=== PATIENT | male | born 1970 | race Caucasian/White ===

== ENCOUNTER 2025-01-14 22:58 | Observation (INO) | payer OTHER, SELFPAY ==
[2025-01-14 23:02] VITALS: BP 166/93; PULSE 72; RESP 22; TEMP 36.7; O2SAT 100; BMI 23.6
--- NOTE | 2025-01-14 23:15 | CTR_ITS ---
PROCEDURE INFORMATION: Exam: CTA Chest Without And With Contrast CTA Abdomen and Pelvis With Contrast Exam date and time: 01/14/2025 11:28 PM Age: 54 years old Clinical indication: Other: N/a; Abdominal pain; C/O intractable chest and epigastric pain radiating into back with n/v. ; Additional info: Aaa TECHNIQUE: Imaging protocol: Computed tomographic angiography of the chest without and with contrast. Exam focused on the arteries. Computed tomographic angiography of the abdomen and pelvis with contrast. Exam focused on the arteries. 3D rendering (Not supervised by radiologist): MIP and/or 3D reconstructed images were created by the technologist. Radiation optimization: All CT scans at this facility use at least one of these dose optimization techniques: automated exposure control; mA and/or kV adjustment per patient size (includes targeted exams where dose is matched to clinical indication); or iterative reconstruction. Contrast material: OMNI 350; Contrast volume: 100 ml; Contrast route: INTRAVENOUS (IV); COMPARISON: No relevant prior studies available. RADIATION DOSE METRICS: Total DLP (mGy-cm): 1767.88 FINDINGS: VASCULATURE: Pulmonary arteries: No evidence of pulmonary embolism. Aorta: No evidence of intramural hematoma on precontrast images. No evidence of aortic dissection. The aorta demonstrates mild atherosclerotic calcification. The aorta is normal in caliber. No aneurysm. Celiac trunk and mesenteric arteries: No occlusion or significant stenosis. Renal arteries: No occlusion or significant stenosis. Right iliac arteries: No occlusion or significant stenosis. Left iliac arteries: No occlusion or significant stenosis. Thyroid: The visualized thyroid gland is unremarkable. CHEST: Trachea: The central airways are patent. Lungs: Moderate emphysema with areas of confluence in the upper lobes. No focal consolidation. Pleural spaces: No significant pleural effusion. No pneumothorax. Heart: Mild aortic valvular calcifications. The heart is normal in size. No pericardial effusion. Coronary arteries: There are scattered mild coronary artery calcifications. ABDOMEN AND PELVIS: Liver: Hepatic hyperemia along the gallbladder fossa. Gallbladder and biliary ducts: 2.5 cm stone within the gallbladder neck. Associated gallbladder wall edema, thickening, pericholecystic stranding and inflammatory changes, as well as mild hepatic hyperemia along the gallbladder fossa. There is no intra or extrahepatic biliary ductal dilatation. Pancreas: The pancreas is unremarkable. Spleen: The spleen is unremarkable. The spleen demonstrates punctate calcifications, consistent with remote granulomatous organism exposure. Adrenal glands: The adrenal glands are unremarkable. Kidneys and ureters: Bilateral nonobstructive renal stones versus early contrast excretion. Simple 2.7 cm cyst within the left kidney. Stomach and bowel: Mild periduodenal fat stranding and mild wall thickening. Colonic diverticulosis without evidence of diverticulitis. Appendix: A normal appendix is identified. Intraperitoneal space: No significant peritoneal free fluid. No free peritoneal air. Urinary bladder: The bladder is unremarkable. Reproductive: The prostate demonstrates nonspecific parenchymal calcifications. Lymph nodes: Calcified hilar lymph nodes, suggestive of prior granulomatous organism exposure. No enlarged lymph nodes by size criteria. Bones/joints: There are right-sided acromioclavicular and glenohumeral joint degenerative changes. The spine demonstrates mild degenerative changes at multiple levels. The spine demonstrates mild degenerative changes at multiple levels. Soft tissues: Unremarkable. Other findings: Scattered calcified granulomas. CT/CT bong gunderson [facility] [id number] IMPRESSION: 1. Cholelithiasis, gallbladder wall edema, thickening, pericholecystic stranding and inflammatory changes, as well as mild hepatic hyperemia along the gallbladder fossa. Findings are consistent with acute cholecystitis. 2. Mild periduodenal fat stranding and mild wall thickening, likely reactive due to adjacent gallbladder inflammation. 3. No evidence of pulmonary embolism. No aortic dissection or aneurysm. 4. Moderate emphysema. COMMENTS: 1. Consistent with the [employer]'s Incidental Findings Committee white paper (J Am Nayla Radiol 2018): Any incidental renal lesion less than 1 cm or classified as too small to characterize, or any incidental cystic renal lesion characterized as simple-appearing, is likely benign. No follow-up imaging is recommended for these lesions per consensus recommendations based on imaging criteria. 2. The presence of pulmonary emphysema on CT is an independent risk factor for lung cancer. In the absence of a history or active diagnosis of lung cancer, it is recommended that this patient with emphysema be evaluated for enrollment in a low dose CT lung cancer screening program.
--- NOTE | 2025-01-14 23:16 | ECG_ITS ---
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 Measurements Intervals [place] Rate: 72 P: 0 CT: 0 QRS: 34 QRSD: 93 T: 54 QT: 361 QTc: 396 Interpretive Statements ATRIAL FIBRILLATION No previous ECG available for comparison Electronically Signed On 01-17-2025 17:29:50 CDT by Chepe Garcia M.D. [id number]
[2025-01-14 23:26] LABS: Basophils # 0.1 10^3/uL (0.0-0.1); Basophils % 0.2 %; Eosinophils % 0.1 %; Hematocrit 48.5 % (37-53); Lymphocytes # 2.3 10^3/uL (0.8-4.8); Lymphocytes % 7.7 %; Mean Corpuscular HGB Conc 35.3 g/dL (30-55); Mean Corpuscular Hemoglobin 28.5 pg (27-33); Mean Platelet Volume 9.3 fL (7.4-10.4); Monocytes # 1.8 10^3/uL (0.2-0.9); Monocytes % 5.9 %; Neutrophils # 25.63 10^3/uL (1.8-7.7); Neutrophils % 85.5 %; Nucleated Red Blood Cells % 0 %; Platelet Count 424 10^3/cmm (157-399); Red Blood Count 5.99 10^6/uL (3.85-5.65); Red Cell Distribution Width 13.9 % (12.1-15.1); White Blood Count 29.95 10^3/uL (3.29-11.43)
[2025-01-14] MEDS: iohexol 350 mg/mL 500 mL Btl (per mL) IV (23:29)
--- NOTE | 2025-01-14 23:36 | W.ED.CHESTPA ---
HPI - Chest Pain General: Chief Complaint: Chest Pain Stated Complaint: CP ?SOB Time Seen by Provider: 01/14/25 23:07 History of Present Illness: Patient is a 54-year-old gentleman, smoker, hypertensive patient compliant to lisinopril, amlodipine, that presented to ED due to severe chest/epigastric pain. This is sharp and stabbing in nature and penetrating to to his back. He does not have history of aortic aneurysm that he is aware of. He does have association of severe increasing shortness of breath, nausea, vomiting, diaphoresis. Denies previous cardiac history. Initial EKG does not show any ST segment elevation. Blood pressure initially was quite elevated. Associated symptoms: Reports abdominal pain, dyspnea, nausea and vomiting; Deny fever(s) or palpitations Related Data Allergies Allergy/AdvReac Type Severity Reaction Status Date / Time No Known Allergies Allergy Verified 01/14/25 23:05 Review of Systems General: Reports: 10 or more systems reviewed and unremarkable except in HPI and below Const: Denies: fever(s) or chills Eyes: Denies: change in vision or blurry vision ENMT: Denies: throat pain Card: Reports: chest pain; Denies: palpitations Resp: Reports: dyspnea; Denies: non-productive cough GI: Reports: abdominal pain, nausea and vomiting : Denies: flank pain or difficulty urinating Musc: Denies: neck pain, back pain or extremity pain Skin/Breast: Denies: rash or pruritus Neuro: Denies: headache(s) or numbness in extremities Psych: Reports: anxiety; Denies: depression Physical Exam Const: COMMON NORMALS: patient oriented x3 HENMT: COMMON NORMALS: normocephalic and atraumatic HEAD & SCALP: normocephalic and atraumatic Chest: COMMONS NORMALS: normal inspection of the chest and normal palpation of entire chest wall Resp: COMMON NORMALS: normal respiratory effort, No retractions and clear to auscultation bilaterally EFFORT & INSPECTION: Yes able to speak in complete sentences AUSCULTATION: clear to auscultation bilaterally Cardio: COMMON NORMALS: regular rate and regular rhythm RATE: regular rate RHYTHM: regular rhythm GI: COMMON NORMALS: Normal to inspection, nondistended, normoactive bowel sounds present, Soft to palpation and non-tender AUSCULTATION: Yes normoactive bowel sounds and Yes Abdominal bruit (epigastrum) PALPATION: Yes Soft to palpation : COMMON NORMALS: Yes no CVA tenderness BLADDER/KIDNEY EXAM: Yes no CVA tenderness Back/Pelvis: COMMON NORMALS: no CVA tenderness Extremity: COMMON NORMALS: normal to inspection, full ROM and capillary refill normal Neuro: COMMON NORMALS: patient oriented x3 and CN's II-XII intact bilaterally Psych: COMMON NORMALS: mental status grossly normal and Normal thought process present THOUGHT PROCESS: Normal thought process present Skin: COMMON NORMALS: no wounds Course Consultations: Consultation #1: D/w Dr. Doshi: He has asked for radio disc jockey to be called in to ensure there is no stones. Patient can have Toradol for pain. N.p.o. for now. Vital Signs: Vital signs: Vital Signs Temperature 98.1 F 01/14/25 23:02 Pulse Rate 72 01/15/25 00:30 Respiratory Rate 22 H 01/15/25 00:30 Blood Pressure 155/88 01/15/25 00:30 Pulse Oximetry 99 01/15/25 00:30 Oxygen Delivery Me thod Room Air 01/14/25 23:02 MDM - Chest Pain Medical Decision Making Patient is a 54-year-old gentleman with excruciating epigastric and chest pain associated with shortness of breath, and nausea, vomiting. This started yesterday a.m. It is worse with food intake after patient was able to have pain control. Initial likely, abdominal bruit was noted in high epigastrium, and therefore stat CT of the abdomen pelvis took place. Cholelithiasis with gallbladder wall edema, thickening, pericholecystic stranding, and a WBC of 29,000 prompted a call to the on-call surgeon Dr. Doshi, who recommends ultrasound to rule out stones prior to full admission. He also recommended Zosyn, however given his creatinine 1.3, with association of hemoglobin is 17, he is okay with Rocephin, and Flagyl until this improves. Primary surgeon also recommended Toradol dose x 1. Discussed with primary surgeon if he would like a call back, and he would. I signed the case out to Dr. Aldridge who will coordinate with the primary surgeon. All of the patient's questions were answered to his satisfaction. Primary surgeon called back and reviewed the CT himself. He does not need an ultrasound at this time called in. He will order that at later juncture. Lab Data 01/14/25 23:10 01/14/25 23:10 Radiology Impressions Chest/Abdomen/Pelvis CTA 01/14/25 23:15 IMPRESSION: 1. Cholelithiasis, gallbladder wall edema, thickening, pericholecystic stranding and inflammatory changes, as well as mild hepatic hyperemia along the gallbladder fossa. Findings are consistent with acute cholecystitis. 2. Mild periduodenal fat stranding and mild wall thickening, likely reactive due to adjacent gallbladder inflammation. 3. No evidence of pulmonary embolism. No aortic dissection or aneurysm. 4. Moderate emphysema. COMMENTS: 1. Consistent with the [employer]'s Incidental Findings Committee white paper (J Am Nayla Radiol 2018): Any incidental renal lesion less than 1 cm or classified as too small to characterize, or any incidental cystic renal lesion characterized as simple-appearing, is likely benign. No follow-up imaging is recommended for these lesions per consensus recommendations based on imaging criteria. 2. The presence of pulmonary emphysema on CT is an independent risk factor for lung cancer. In the absence of a history or active diagnosis of lung cancer, it is recommended that this patient with emphysema be evaluated for enrollment in a low dose CT lung cancer screening program. Chest X-Ray 01/14/25 23:40 IMPRESSION: No acute findings. Laboratory Results WBC 29.95 10^3/uL (3.29-11.43) H 01/14/25 23:10 RBC 5.99 10^6/uL (3.85-5.65) H 01/14/25 23:10 Hgb 17.10 g/dL (11.27-16.99) H 01/14/25 23:10 Hct 48.5 % (37-53) 01/14/25 23:10 MCV 81.0 fl (82-101) L 01/14/25 23:10 MCH 28.5 pg (27-33) 01/14/25 23:10 MCHC 35.3 g/dL (30-55) 01/14/25 23:10 RDW 13.9 % (12.1-15.1) 01/14/25 23:10 Plt Count 424 10^3/cmm (157-399) H 01/14/25 23:10 MPV 9.3 fL (7.4-10.4) 01/14/25 23:10 Neut % (Auto) 85.5 % 01/14/25 23:10 Lymph % (Auto) 7.7 % 01/14/25 23:10 [place] % (Auto) 5.9 % 01/14/25 23:10 Eos % (Auto) 0.1 % 01/14/25 23:10 Baso % (Auto) 0.2 % 01/14/25 23:10 Neut # (Auto) 25.63 10^3/uL (1.8-7.7) H 01/14/25 23:10 Lymph # (Auto) 2.3 10^3/uL (0.8-4.8) 01/14/25 23:10 [place] # (Auto) 1.8 10^3/uL (0.2-0.9) H 01/14/25 23:10 Eos # (Auto) 0.0 10^3/uL (0.0-0.8) 01/14/25 23:10 Baso # (Auto) 0.1 10^3/uL (0.0-0.1) 01/14/25 23:10 Nucleated RBC % (auto) 0 % 01/14/25 23:10 Nucleated RBCs # 0.0 /100WBC 01/14/25 23:10 Sodium 141 mmol/L (136-145) 01/14/25 23:10 Potassium 3.9 mmol/L (3.5-5.1) 01/14/25 23:10 Chloride 102 mmol/L (98-107) 01/14/25 23:10 Carbon Dioxide 18 mmol/L (22-29) L 01/14/25 23:10 Anion Gap 24.9 (5-19) H 01/14/25 23:10 BUN 20 mg/dL (6-20) 01/14/25 23:10 Creatinine 1.3 mg/dL (0.7-1.2) H 01/14/25 23:10 GFR Calculation 57.1 mL/min (90-130) L 01/14/25 23:10 Glucose 153 mg/dL (65-115) H 01/14/25 23:10 Calculated Osmolality 298 mOsm/kg (285-295) H 01/14/25 23:10 Calcium 11.2 mg/dL (8.5-10.5) H 01/14/25 23:10 Total Bilirubin 1.2 mg/dL (0.15-1.2) 01/14/25 23:10 AST 20 U/L (0-40) 01/14/25 23:10 ALT 19 U/L (0-41) 01/14/25 23:10 Alkaline Phosphatase 123 U/L (40-130) 01/14/25 23:10 Troponin T Baseline 12 ng/L (0-15) 01/14/25 23:10 Troponin T 120 Minute 13.96 ng/L (0-15) 01/15/25 00:23 Delta Troponin T 1.96 ABS# (0-10) 01/15/25 00:23 Total Protein 8.0 g/dL (6.6-8.7) 01/14/25 23:10 Albumin 5.1 g/dL (3.5-5.2) 01/14/25 23:10 Globulin 2.9 g/dL (1.3-4.6) 01/14/25 23:10 Lipase 51 U/L (13-60) 01/14/25 23:10 All radiology interpretation(s) finalized by discharge EKG Data EKG 1: Interpretation: Normal axis, sinus rhythm, LVH, left atrial enlargement Discharge Plan Discharge Patient Disposition: Admitted As Inpatient Clinical Impression: Cholecystitis, JUANCARLOS (acute kidney injury), Polycythemia, secondary, Leukocytosis Condition: Stable Discharge Diet: Clear Liquid Coding Level of Care Code ED Gummed Tape Press Operator for Chg Rex
--- NOTE | 2025-01-14 23:40 | XRR_ITS ---
PROCEDURE INFORMATION: Exam: XR Chest Exam date and time: 01/14/2025 11:57 PM Age: 54 years old Clinical indication: Chest pressure; C/O chest pain TECHNIQUE: Imaging protocol: Radiologic exam of the chest. Views: 1 view. COMPARISON: CT ang jalyn edwardo [id number] 01/14/2025 11:28 PM FINDINGS: Lungs: Unremarkable. No consolidation. Pleural spaces: Unremarkable. No pleural effusion. No pneumothorax. Heart/Mediastinum: Unremarkable. No cardiomegaly. Bones/joints: There are right-sided acromioclavicular and glenohumeral joint degenerative changes. The spine demonstrates mild degenerative changes at multiple levels. XR/XR chest 1V portable [id number] IMPRESSION: No acute findings.
[2025-01-14] MEDS: morphine 4 mg/mL SDV 1 mL IVP (23:43)
[2025-01-14] MEDS: nitroglycerin 1 gm/inch oint Pkt 0.5 INCH TOPICAL (23:43)
[2025-01-14 23:44] LABS: Troponin(5th) Baseline 12 ng/L (0-15)
[2025-01-14 23:46] LABS: Alanine Aminotransferase 19 U/L (0-41); Albumin Level 5.1 g/dL (3.5-5.2); Alkaline Phosphatase 123 U/L (40-130); Anion Gap 24.9 (5-19); Aspartate Amino Transferase 20 U/L (0-40); Blood Urea Nitrogen 20 mg/dL (6-20); Calcium 11.2 mg/dL (8.5-10.5); Carbon Dioxide 18 mmol/L (22-29); Chloride 102 mmol/L (98-107); Creatinine Clr Calc Pharmacy 64.1218; Globulin 2.9 g/dL (1.3-4.6); Glomerular Filtration Rate 57.1 mL/min (90-130); Glucose 153 mg/dL (65-115); Lipase 51 U/L (13-60); Osmolality Calculated 298 mOsm/kg (285-295); Potassium 3.9 mmol/L (3.5-5.1); Sodium 141 mmol/L (136-145); Total Bilirubin 1.2 mg/dL (0.15-1.2)
[2025-01-15] VITALS (28 sets, daily range): BP systolic 87–185; BP diastolic 55–96; PULSE 58–99; RESP 11–27; TEMP 36.5–37.8; O2SAT 90–100; BMI 23.6
[2025-01-15] MEDS: ketorolac 30 mg/mL INJ IVP (00:49)
[2025-01-15] MEDS: HYDROmorphone 0.5 MG/0.5 ML INJ 1 MG IVP (00:50)
[2025-01-15 00:52] LABS: Troponin 5 2HR 13.96 ng/L (0-15); Troponin 5 2HR Delta 1.96 ABS# (0-10)
[2025-01-15] MEDS: cefTRIAXone 1,000 mg SDV 1000 MG IVP (01:07)
[2025-01-15] MEDS: ondansetron 2 mg/ML SDV 2 mL 4 MG IVP (01:07)
[2025-01-15] MEDS: sodium chloride 0.9% 1,000 ML 999 ML IV (01:08)
[2025-01-15] MEDS: metroNIDAZOLE IV 500 MG/100 ML PREMIX 100 MG IV (01:15)
--- NOTE | 2025-01-15 01:15 | USR_ITS ---
PROCEDURE INFORMATION: Exam: US Abdomen, Limited; Right Upper Quadrant Exam date and time: 01/15/2025 5:56 AM Age: 54 years old Clinical indication: Abdominal pain; Additional info: Dr. Naresh Cesar wants US called in TECHNIQUE: Imaging protocol: Real time ultrasound of the abdomen with image documentation. Limited exam focused on the right upper quadrant. COMPARISON: CT ang [facility] abdpel [id number] 01/14/2025 11:28 PM FINDINGS: Liver: Normal. No masses. Gallbladder: Cholelithiasis including stones in the neck of the gallbladder. The gallbladder wall is thickened and edematous at 6 mm. Sludge is also present within the gallbladder. Biliary ducts: The common duct is borderline at 7 mm. Pancreas: Visualized pancreas is unremarkable. Right kidney: Normal. No mass. No hydronephrosis. US/US abdomen limited [id number] IMPRESSION: Cholelithiasis with a thickened and probably edematous gallbladder wall. Acute cholecystitis is likely.
--- NOTE | 2025-01-15 02:40 | ECG_ITS ---
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 Measurements Intervals [place] Rate: 69 P: 51 SD: 150 QRS: 8 QRSD: 101 T: 19 QT: 391 QTc: 419 Interpretive Statements SINUS RHYTHM Compared to ECG 01/14/2025 23:00:59 Atrial fibrillation no longer present Electronically Signed On 01-15-2025 19:33:22 CDT by Tigist Su M.D. [email or web address] [id number]
[2025-01-15] MEDS: lactated ringers 1,000 ML 125 ML IV ×3 (02:55→22:28)
[2025-01-15] MEDS: piperacillin-tazobactam 3.375 GM in sodium chloride 0.9% (plus) 50 ML IV ×2 (03:16→09:13)
--- NOTE | 2025-01-15 05:16 | ECG_ITS ---
[employer] 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 Measurements Intervals [place] Rate: 75 P: 57 GA: 162 QRS: 15 QRSD: 87 T: 35 QT: 351 QTc: 392 Interpretive Statements SINUS RHYTHM SEPTAL MYOCARDIAL INFARCTION , PROBABLY OLD [40+ ms Q WAVE IN V1/V2] Compared to ECG 01/15/2025 02:40:49 Myocardial infarct finding now present Electronically Signed On 01-15-2025 19:33:10 CDT by Tigist Su M.D. [email or web address] [id number]
[2025-01-15 05:54] LABS: Troponin 5 6HR 12.79 ng/L (0-15); Troponin 5 6HR Delta 0.79 ng/L (0-12)
[2025-01-15] MEDS: HYDROmorphone 0.5 MG/0.5 ML INJ IVP ×3 (06:21→22:29)
--- NOTE | 2025-01-15 07:24 | PC.PHAR ---
Pts' primary pharmac is [facility] in [place] but, for today, wants to use [facility] [place]. Changed current pharmacy to [facility].
--- NOTE | 2025-01-15 09:08 | P.HP_ITS ---
Providers/Chief Complaint 2 Admitting Physician: Arden Carroll MD Primary Care Provider: Cory Robin MD Chief Complaint: CP SOB History of Present Illness Jose Manuel Leblanc is a 54 year old male who presents to the hospital with severe chest and epigastric abdominal pain. Workup was consistent with acute cholecystitis. According to the patient he had a similar pain about a month ago but he stayed home and it subsided without treatment. About 48 hours ago he started to have severe abdominal pain that worsened after eating and therefore he decided to present overnight. Weikel in the ER is 29,000 CT scan and ultrasound are consistent with acute cholecystitis with a 2.5 cm stone in the neck of the gallbladder. Review of Systems 2 General: Reports: 10 or more systems reviewed and unremarkable except in HPI and below Medications/Allergies Home Medications ?Medication ?Instructions ?Recorded ?Confirmed ?Last Taken ?Type amlodipine 10 mg tablet 10 mg PO DAILY 01/15/2512/2601/14/25 History lisinopril 20 mg tablet 20 mg PO DAILY 01/15/2512/2601/14/25 History Allergies Allergy/AdvReac Type Severity Reaction Status Date / Time No Known Allergies Allergy Verified 01/14/25 23:05 Vitals/I&O/Wt Last Vital Signs Temp 98.1 F 01/14/25 23:02 Pulse 79 01/15/25 08:55 Resp 27 H 01/15/25 07:00 BP 134/87 01/15/25 08:55 Pulse Ox 92 01/15/25 08:55 O2 Del Method Room Air 01/15/25 03:00 01/14/25 01/15/25 01/15/25 22:59 06:59 14:59 Intake Total 100 / 100 Balance 100 / 100 Weight last 48 hrs Weight 160 lb Physical Exam 2 GI: OTHER: Abdominal exam is benign abdomen soft there is only mild tenderness in right upper quadrant nondistended Data 01/14/25 23:10 01/14/25 23:10 A&P Assessment and plan (1) Cholecystitis: (2) JUANCARLOS (acute kidney injury): Plan After a complete history, physical examination and review of all available clinical data I have offered the patient laparoscopic possible open cholecystectomy for acute cholecystitis. All the risk and benefits of the procedure were discussed with the patient including the risks of bleeding, infection, damage to surrounding structures including liver, duodenum, colon, risk of injuring bile ducts requiring extensive surgery at higher level of care facility, risk of retained stones, bile leak, bilioma, need for subtotal cholecystectomy (that may lead to leak and need for additional surgery), hernia and wound related complications, need to conversion to open procedure. Patient shows understanding and would like to proceed. Patient is being kept n.p.o. and will proceed with surgery as soon as the OR is available PDMP PDMP Reviewed: Not Reviewed Attestations 2 Medical Necessity Statement*: Patient will require 24 to 48 hours of hospital stay for acute cholecystitis Coding Level of Care Code Acute Code for [facility] Fwd Diagnoses Cholecystitis K81.9 JUANCARLOS (acute kidney injury) N17.9
--- NOTE | 2025-01-15 09:12 | ANES.PREANE2 ---
Pre-Anesthetic Assessment Height/Weight: Height 1.75 m Weight 72.575 kg Temp Pulse Resp BP Pulse Ox O2 Del Method 99.0 F 87 20 H 169/96 96 Room Air 01/15/25 09:00 01/15/25 09:00 01/15/25 09:00 01/15/25 09:00 01/15/25 09:00 01/15/25 09:00 Operation Date: 01/15/25 10:20 Proposed Procedures p Laparoscopic Possible Open Cholecystectomy(Not Applicable) - Arden Carroll MD Familial anesthetic complications: None Was Beta Jose taken within 24 hours: N/A Was Clonidine taken within 24 hours: N/A Last intake: > 8hrs Social No alcohol and No tobacco Exam alert, oriented x 3, clear to auscultation bilaterally and regular rate & rhythm Airway Mallampati: Class II Dentition: loose (1 loose) and other (multiple missing) Comments: Comments: Full herman CV/HEM Hypertension Anesthetic Plan ASA status: 2 Anesthesia: General Risk of > 500 ml blood loss (7ml/kg in children): No Medications/Allergies Home Medications ?Medication ?Instructions ?Recorded ?Confirmed ?Last Taken ?Type amlodipine 10 mg tablet 10 mg PO DAILY 01/15/25 01/15/25 01/14/25 History lisinopril 20 mg tablet 20 mg PO DAILY 01/15/25 01/15/25 01/14/25 History Allergies Allergy/AdvReac Type Severity Reaction Status Date / Time No Known Allergies Allergy Verified 01/14/25 23:05 Current Medications Generic Name Dose Route Start Last Admin Trade Name Freq PRN Reason Stop Dose Admin Hydromorphone HCl 0.5 mg 01/15/25 01:36 01/15/25 06:21 Hydromorphone 0.5 Mg/0.5 Ml Inj IVP 0.5 mg Q4H PRN Administration SEVERE PAIN Lactated Ringer's 1,000 mls @ 125 mls/hr 01/15/25 02:00 01/15/25 02:55 Lactated Ringers IV 125 mls/hr .Q8H PEDRITO Administration Data Anesthesia 01/14/25 23:10 01/14/25 23:10 Short CBC 01/14/25 Range/Units 23:10 WBC 29.95 H (3.29-11.43) 10^3/uL Hgb 17.10 H (11.27-16.99) g/dL Hct 48.5 (37-53) % MCV 81.0 L (82-101) fl Plt Count 424 H (157-399) 10^3/cmm Neut % (Auto) 85.5 % Neut # (Auto) 25.63 H (1.8-7.7) 10^3/uL BMP 01/14/25 23:10 Sodium 141 Potassium 3.9 Chloride 102 Carbon Dioxide 18 L BUN 20 Creatinine 1.3 H Glucose 153 H Calcium 11.2 H Cardiac Enzymes 01/14/25 01/15/25 01/15/25 Range/Units 23:10 00:23 05:15 Troponin T Baseline 12 (0-15) ng/L Troponin T 120 Minute 13.96 (0-15) ng/L Delta Troponin T 1.96 (0-10) ABS# Troponin T Hi Sens 6Hr 12.79 (0-15) ng/L Troponin T Hi Sens 6Hr Delta 0.79 (0-12) ng/L Liver Function 01/14/25 Range/Units 23:10 Total Bilirubin 1.2 (0.15-1.2) mg/dL AST 20 (0-40) U/L ALT 19 (0-41) U/L Alkaline Phosphatase 123 (40-130) U/L Albumin 5.1 (3.5-5.2) g/dL
[2025-01-15] MEDS: BUPivacaine 0.25% INJ 30 mL INJECTION (11:01)
[2025-01-15] MEDS: lidocaine-epi 1% 20 mL INJ INJECTION (11:01)
--- NOTE | 2025-01-15 13:19 | PM.OP ---
Operative Report Date of procedure: January 15, 2025 Pre-op diagnosis: Acute cholecystitis Post-op diagnosis: Same Post-op findings: Severe acute cholecystitis, there was a 2.5 cm stone impacted in the neck of the gallbladder, the gallbladder was severely inflamed with a thickened wall, and anatomy of the hepatocystic triangle was very difficult to identify. The tissue was friable and bleeding. Procedure done: Laparoscopic cholecystectomy (add modifier 22) Specimens removed/disposition: Gallbladder Surgeon: Arden Carroll MD Master Scheduler: OLINDA OR STaff Estimated blood loss: 50 Complications: none Brief History: 54-year-old male with acute cholecystitis who presented after 2 to 3 days of abdominal pain, white count noted to be 29 imaging is consistent with acute cholecystitis. After discussion of risk benefits and submitted my preop note with side to proceed to the OR for laparoscopic cholecystectomy. Procedure: Patient was brought into the OR, he was placed in a supine position. General anesthesia was given. The abdomen was prepped and draped in usual sterile fashion. Timeout was conducted. The abdomen was accessed via a 5 mm Optiview trocar in the left upper quadrant. Additional 12 mm trocar was placed in the supraumbilical position under direct visualization. 5 mm trocars were placed in the epigastrium right upper quadrant and right flank under direct visualization. The patient was placed in a steep reverse Trendelenburg with the left side down. Adhesions from the omentum to the gallbladder were noted, these were inflammatory adhesions were taken down bluntly there was some oozing during this. The wall of the gallbladder was extremely thickened and impossible to grasp use a decompression needle and remove about 60cc of dark bile from the gallbladder before I was able to grasp it. the gallbladder was grasped in the fundus and elevated, there was significant inflammation at the level of the infundibulum and hepatocystic triangle, infundibulum was very difficult to grasp due to an impacted stone at this level. With careful dissection with a laparoscopic Kitner I was able to take down all the fatty attachments from the surrounding tissue to the infundibulum of the gallbladder and I was able to pull the duodenum down with careful blunt dissection. I then used electrocautery to open the peritoneum anterior to the cystic triangle, I carried this opening the medial and lateral dissection to the edges of the liver and then on the sides of the gallbladder to allow for better visualization. There was severe inflammation at this level the exposure of the critical structures was extremely difficult, with great difficulty and a combination of blunt dissection and electrocautery I eventually was able to encircle the cystic artery and the cystic duct and to elevate the lower third of the gallbladder from the liver I did create a critical view of safety. At this point I double clipped the cystic artery and cystic duct proximally and single clipped distally and transected. The gallbladder was then removed from the liver bed using electrocautery, the gallbladder was significantly inflamed in the midsection of the gallbladder I entered the posterior wall and decided to leave a small portion of the posterior wall as there was significant oozing from the liver. Once the gallbladder was completely removed from the liver bed I proceeded to verify hemostasis and fulgurated the mucosa of the small patch of posterior wall that was left with the patient in the liver bed. Hemostasis was verified the clips appeared to be in good position there was no bile leak. The gallbladder was placed in an Endo Catch bag and retrieved via the umbilical trocar site, due to the size of the stone in the gallbladder I had to significantly dilate the fascia and increase the size of the skin incision. I then proceeded to irrigate the liver bed and aspirated until clear fluid was obtained. No evidence of procedural bilious material was noted and there was no bile leak or bleeding that I could see. The umbilical trocar was removed and umbilical trocar site was closed with two #0 Vicryl [id number] sutures using a [facility] suture passer. I then proceeded to remove the epigastrium right upper quadrant right flank trocars under direct visualization, the left upper quadrant trocar was used to evacuate the pneumoperitoneum and subsequently removed. Hemostasis was achieved in the wounds. Local anesthesia was infiltrated and then the wounds were closed in layers using #3-0 Vicryl for the subcutaneous tissue and #4-0 Monocryl for the skin. Dermabond was applied. At the end of the procedure all counts were correct the patient tolerated well the procedure was transferred to PACU in stable condition. The surgical procedure was significantly more difficult than the average laparoscopic cholecystectomy requiring my maximal level of a skill and attention.
--- NOTE | 2025-01-15 13:55 | ANE.PACU2 ---
Inpatient post-anesthesia follow up: Vital signs: Temperature 98.0 F Pulse Rate 81 Respiratory Rate 18 Blood Pressure 144/81 Pulse Oximetry 93 Oxygen Delivery Me thod Room Air Oxygen Flow Rate 8 Fraction of Inspir ed Oxygen
--- NOTE | 2025-01-15 13:55 | ANE.PACU2 ---
Inpatient post-anesthesia follow up: Airway intact: Yes Vital signs: Temperature 98.0 F Pulse Rate 81 Respiratory Rate 18 Blood Pressure 144/81 Pulse Oximetry 93 Oxygen Delivery Me thod Room Air Oxygen Flow Rate 8 Fraction of Inspir ed Oxygen Hydration adequate: Yes Nausea and vomiting: No Pain level: 1 Mental status: Baseline
[2025-01-15] MEDS: pantoprazole 40 mg SDV IVP (14:22)
[2025-01-16] MEDS: HYDROmorphone 0.5 MG/0.5 ML INJ IVP ×2 (02:01→06:02)
[2025-01-16] MEDS: pantoprazole 40 mg SDV IVP ×2 (02:01→13:07)
[2025-01-16 04:00] VITALS: BP 126/77; PULSE 78; RESP 15; TEMP 36.7; O2SAT 90
[2025-01-16 05:43] LABS: Basophils % 0.1 %; Hematocrit 38.7 % (37-53); Lymphocytes # 1.8 10^3/uL (0.8-4.8); Lymphocytes % 8.2 %; Mean Corpuscular HGB Conc 33.9 g/dL (30-55); Mean Corpuscular Hemoglobin 28.4 pg (27-33); Mean Corpuscular Volume 83.9 fl (82-101); Mean Platelet Volume 9.4 fL (7.4-10.4); Monocytes # 1.5 10^3/uL (0.2-0.9); Monocytes % 6.8 %; Neutrophils # 18.78 10^3/uL (1.8-7.7); Neutrophils % 84.2 %; Nucleated Red Blood Cells % 0 %; Platelet Count 275 10^3/cmm (157-399); Red Blood Count 4.61 10^6/uL (3.85-5.65); Red Cell Distribution Width 14.4 % (12.1-15.1)
[2025-01-16] MEDS: lactated ringers 1,000 ML 125 ML IV ×2 (06:04→21:23)
[2025-01-16 06:07] LABS: Alanine Aminotransferase 82 U/L (0-41); Albumin Level 3.2 g/dL (3.5-5.2); Alkaline Phosphatase 76 U/L (40-130); Anion Gap 15.8 (5-19); Aspartate Amino Transferase 43 U/L (0-40); Blood Urea Nitrogen 12 mg/dL (6-20); Calcium 8.3 mg/dL (8.5-10.5); Carbon Dioxide 21 mmol/L (22-29); Chloride 106 mmol/L (98-107); Creatinine Clr Calc Pharmacy 102.8481; Globulin 2.5 g/dL (1.3-4.6); Glucose 94 mg/dL (65-115); Magnesium 1.6 mg/dL (1.7-2.3); Osmolality Calculated 288 mOsm/kg (285-295); Potassium 3.8 mmol/L (3.5-5.1); Sodium 139 mmol/L (136-145); Total Bilirubin 1.5 mg/dL (0.15-1.2); Total Protein 5.7 g/dL (6.6-8.7)
[2025-01-16] MEDS: piperacillin-tazobactam 3.375 GM in sodium chloride 0.9% (plus) 50 ML IV ×3 (06:34→21:24)
--- NOTE | 2025-01-16 06:34 | P.PN_ITS ---
Subjective 2 Subjective: Postoperative day 1 status post laparoscopic cholecystectomy for acute cholecystitis. Patient is doing much better today has some abdominal pain in the right upper quadrant but other than that feels better no epigastric or chest pain reported. Vitals/I&O/Wt Last Vital Signs Temp 98.1 F 01/16/25 04:00 Pulse 78 01/16/25 04:00 Resp 15 01/16/25 04:00 BP 126/77 01/16/25 04:00 Pulse Ox 90 01/16/25 04:00 O2 Del Method Room Air 01/16/25 04:00 O2 Flow Rate 8 01/15/25 13:41 01/15/25 01/15/25 01/16/25 14:59 22:59 06:59 Intake Total 2550 / 2550 1000 / 3550 1190 / 4740 Output Total 315 / 315 950 / 1265 600 / 1865 Balance 2235 / 2235 50 / 2285 590 / 2875 Weight last 48 hrs Weight 154 lb 14.4 oz Weight 160 lb Weight 160 lb Physical Exam 2 GI: OTHER: Abdominal examination is benign abdomen soft appropriately tender to palpation surgical incisions are covered with Dermabond Data 01/16/25 05:34 01/16/25 05:34 A&P Assessment and plan (1) Cholecystitis: Plan Patient showing very good progression over the last 24 hours. His white count has trended down from 29-22. Acute kidney injury has resolved. He has a mild bump in the bilirubin to 1.5 and AST and ALT in the 40s but this is all expected due to the significant amount of inflammation encountered during surgery. The plan will be to keep him in-house for another 24 hours of IV antibiotics and pain control and we will allow him to go home early in the morning tomorrow or this afternoon depending on how he is feeling. PDMP PDMP Reviewed: Not Reviewed Attestations 2 Medical Necessity Statement*: Patient will require 24 to 48 hours of hospital stay for acute cholecystitis Coding Level of Care Code Acute Code for [facility] Diagnoses Cholecystitis K81.9
[2025-01-16] MEDS: ketorolac 30 mg/mL INJ 15 MG IVP ×3 (06:42→18:27)
[2025-01-16 07:09] VITALS: BP 149/87; PULSE 85; RESP 18; TEMP 36.7; O2SAT 95
[2025-01-16] MEDS: lisinopril 20 mg Tablet PO (09:00)
[2025-01-16] MEDS: amlodipine 10 mg Tablet PO (09:00)
[2025-01-16 10:57] VITALS: BP 144/81; PULSE 81; RESP 18; TEMP 36.7; O2SAT 93
[2025-01-16 15:42] VITALS: BP 136/73; PULSE 78; RESP 18; TEMP 36.6; O2SAT 91
[2025-01-16 20:00] VITALS: BP 138/89; PULSE 79; RESP 16; TEMP 36.7; O2SAT 92
[2025-01-16 23:56] VITALS: BP 142/80; PULSE 66; RESP 16; TEMP 36.8; O2SAT 92
[2025-01-17] MEDS: ketorolac 30 mg/mL INJ 15 MG IVP ×2 (00:47→06:17)
[2025-01-17] MEDS: pantoprazole 40 mg SDV IVP (02:08)
[2025-01-17 03:54] VITALS: BP 130/88; PULSE 58; RESP 17; TEMP 36.9; O2SAT 95
[2025-01-17] MEDS: piperacillin-tazobactam 3.375 GM in sodium chloride 0.9% (plus) 50 ML IV (05:19)
[2025-01-17 05:32] LABS: Basophils % 0.2 %; Eosinophils # 0.1 10^3/uL (0.0-0.8); Eosinophils % 0.6 %; Hematocrit 37.9 % (37-53); Lymphocytes # 3.5 10^3/uL (0.8-4.8); Lymphocytes % 27.9 %; Mean Corpuscular HGB Conc 33.2 g/dL (30-55); Mean Corpuscular Hemoglobin 28.1 pg (27-33); Mean Corpuscular Volume 84.4 fl (82-101); Mean Platelet Volume 9.7 fL (7.4-10.4); Monocytes # 0.9 10^3/uL (0.2-0.9); Monocytes % 7.5 %; Neutrophils # 7.95 10^3/uL (1.8-7.7); Neutrophils % 63.4 %; Nucleated Red Blood Cells % 0 %; Platelet Count 283 10^3/cmm (157-399); Red Blood Count 4.49 10^6/uL (3.85-5.65); Red Cell Distribution Width 14.2 % (12.1-15.1); White Blood Count 12.55 10^3/uL (3.29-11.43)
[2025-01-17 05:50] LABS: Alanine Aminotransferase 60 U/L (0-41); Albumin Level 3.2 g/dL (3.5-5.2); Alkaline Phosphatase 71 U/L (40-130); Anion Gap 14.4 (5-19); Aspartate Amino Transferase 28 U/L (0-40); Blood Urea Nitrogen 14 mg/dL (6-20); Calcium 8.4 mg/dL (8.5-10.5); Carbon Dioxide 23 mmol/L (22-29); Chloride 106 mmol/L (98-107); Creatinine Clr Calc Pharmacy 82.2785; Globulin 2.5 g/dL (1.3-4.6); Glomerular Filtration Rate 77.3 mL/min (90-130); Glucose 83 mg/dL (65-115); Magnesium 1.8 mg/dL (1.7-2.3); Osmolality Calculated 290 mOsm/kg (285-295); Potassium 3.4 mmol/L (3.5-5.1); Sodium 140 mmol/L (136-145); Total Bilirubin 1.5 mg/dL (0.15-1.2); Total Protein 5.7 g/dL (6.6-8.7)
[2025-01-17 07:28] VITALS: BP 152/87; PULSE 65; RESP 16; TEMP 36.6; O2SAT 95
--- NOTE | 2025-01-17 07:56 | P.DS_ITS ---
Discharge Providers Date of Admission: 01/15/25 01:34 Date of Discharge: January 17, 2025 Attending Provider at Admission: Arden Carroll MD Attending Provider at Discharge: Arden Carroll MD Primary Care Provider: Cory Robin MD Diagnoses at Discharge Discharge Diagnosis (1) Cholecystitis: Status: Acute Reason for Visit Reason for Visit: CP SOB Hospital Course Hospital Course 54-year-old male who presented to the hospital with acute cholecystitis. He was taken to the OR for laparoscopic cholecystectomy, have a good postoperative course with improvement in symptoms and downtrending of the white count. He is tolerating diet passing gas ambulating. He will be allowed to transition to the outpatient setting Physical Exam GI: OTHER: Abdominal examination is benign abdomen soft nontender nondistended, surgical incisions are healing well Discharge Data Studies Completed and Pending Completed Studies During Hospitalization Category Date Time Status CTA chest abdomen pelvis [CT ang ches abdpel 16188/ Cat Scan 01/14/25 23:15 Completed [id number]] Stat XR chest 1V portable [id number] Stat Exams 01/14/25 23:40 Completed US abdomen limited [id number] Stat Ultrasound 01/15/25 01:15 Completed Pending at discharge Category Date Time Status Complete Blood Count w/Auto AM LABS Lab 01/18/25 04:00 Ordered Comprehensive Metabolic Panel AM LABS Lab 01/18/25 04:00 Ordered Magnesium AM LABS Lab 01/18/25 04:00 Ordered Pathology: Surgical [PTH] Routine Pth 01/15/25 12:57 Received Radiology Impressions Chest/Abdomen/Pelvis CTA 01/14/25 23:15 IMPRESSION: 1. Cholelithiasis, gallbladder wall edema, thickening, pericholecystic stranding and inflammatory changes, as well as mild hepatic hyperemia along the gallbladder fossa. Findings are consistent with acute cholecystitis. 2. Mild periduodenal fat stranding and mild wall thickening, likely reactive due to adjacent gallbladder inflammation. 3. No evidence of pulmonary embolism. No aortic dissection or aneurysm. 4. Moderate emphysema. COMMENTS: 1. Consistent with the [employer]'s Incidental Findings Committee white paper (J Am Nayla Radiol 2018): Any incidental renal lesion less than 1 cm or classified as too small to characterize, or any incidental cystic renal lesion characterized as simple-appearing, is likely benign. No follow-up imaging is recommended for these lesions per consensus recommendations based on imaging criteria. 2. The presence of pulmonary emphysema on CT is an independent risk factor for lung cancer. In the absence of a history or active diagnosis of lung cancer, it is recommended that this patient with emphysema be evaluated for enrollment in a low dose CT lung cancer screening program. Chest X-Ray 01/14/25 23:40 IMPRESSION: No acute findings. Abdomen Ultrasound 01/15/25 01:15 IMPRESSION: Cholelithiasis with a thickened and probably edematous gallbladder wall. Acute cholecystitis is likely. Laboratory Results WBC 12.55 10^3/uL (3.29-11.43) H 01/17/25 04:49 RBC 4.49 10^6/uL (3.85-5.65) 01/17/25 04:49 Hgb 12.60 g/dL (11.27-16.99) 01/17/25 04:49 Hct 37.9 % (37-53) 01/17/25 04:49 MCV 84.4 fl (82-101) 01/17/25 04:49 MCH 28.1 pg (27-33) 01/17/25 04:49 MCHC 33.2 g/dL (30-55) 01/17/25 04:49 RDW 14.2 % (12.1-15.1) 01/17/25 04:49 Plt Count 283 10^3/cmm (157-399) 01/17/25 04:49 MPV 9.7 fL (7.4-10.4) 01/17/25 04:49 Neut % (Auto) 63.4 % 01/17/25 04:49 Lymph % (Auto) 27.9 % 01/17/25 04:49 Hopkins % (Auto) 7.5 % 01/17/25 04:49 Eos % (Auto) 0.6 % 01/17/25 04:49 Baso % (Auto) 0.2 % 01/17/25 04:49 Neut # (Auto) 7.95 10^3/uL (1.8-7.7) H 01/17/25 04:49 Lymph # (Auto) 3.5 10^3/uL (0.8-4.8) 01/17/25 04:49 Hopkins # (Auto) 0.9 10^3/uL (0.2-0.9) 01/17/25 04:49 Eos # (Auto) 0.1 10^3/uL (0.0-0.8) 01/17/25 04:49 Baso # (Auto) 0.0 10^3/uL (0.0-0.1) 01/17/25 04:49 Nucleated RBC % (auto) 0 % 01/17/25 04:49 Nucleated RBCs # 0.0 /100WBC 01/17/25 04:49 Sodium 140 mmol/L (136-145) 01/17/25 04:49 Potassium 3.4 mmol/L (3.5-5.1) L 01/17/25 04:49 Chloride 106 mmol/L (98-107) 01/17/25 04:49 Carbon Dioxide 23 mmol/L (22-29) 01/17/25 04:49 Anion Gap 14.4 (5-19) 01/17/25 04:49 BUN 14 mg/dL (6-20) 01/17/25 04:49 Creatinine 1.0 mg/dL (0.7-1.2) 01/17/25 04:49 GFR Calculation 77.3 mL/min (90-130) L 01/17/25 04:49 Glucose 83 mg/dL (65-115) 01/17/25 04:49 Calculated Osmolality 290 mOsm/kg (285-295) 01/17/25 04:49 Calcium 8.4 mg/dL (8.5-10.5) L 01/17/25 04:49 Magnesium 1.8 mg/dL (1.7-2.3) 01/17/25 04:49 Total Bilirubin 1.5 mg/dL (0.15-1.2) H 01/17/25 04:49 AST 28 U/L (0-40) 01/17/25 04:49 ALT 60 U/L (0-41) H 01/17/25 04:49 Alkaline Phosphatase 71 U/L (40-130) 01/17/25 04:49 Troponin T Baseline 12 ng/L (0-15) 01/14/25 23:10 Troponin T 120 Minute 13.96 ng/L (0-15) 01/15/25 00:23 Delta Troponin T 1.96 ABS# (0-10) 01/15/25 00:23 Troponin T Hi Sens 6Hr 12.79 ng/L (0-15) 01/15/25 05:15 Troponin T Hi Sens 6Hr Delta 0.79 ng/L (0-12) 01/15/25 05:15 Total Protein 5.7 g/dL (6.6-8.7) L 01/17/25 04:49 Albumin 3.2 g/dL (3.5-5.2) L 01/17/25 04:49 Globulin 2.5 g/dL (1.3-4.6) 01/17/25 04:49 Lipase 51 U/L (13-60) 01/14/25 23:10 Vitals Last Vital Signs Temp 97.9 F 01/17/25 07:28 Pulse 65 01/17/25 07:28 Resp 16 01/17/25 07:28 BP 152/87 01/17/25 07:28 Pulse Ox 95 01/17/25 07:28 O2 Del Method Room Air 01/17/25 07:28 O2 Flow Rate 8 01/15/25 13:41 Discharge Plan Discharge Patient Disposition: Home Condition: Stable Prescriptions: New oxycodone 5 mg tablet 5 mg PO Q8H PRN (Reason: pain) 7 Days Qty: 20 0RF amoxicillin-pot clavulanate 875-125 mg tablet 1 tab PO BID 7 Days Qty: 14 0RF polyethylene glycol 3350 [Miralax] 17 gram powder in packet 17 g PO DAILY 7 Days Qty: 7 0RF Continued lisinopril 20 mg tablet 20 mg PO DAILY amlodipine 10 mg tablet 10 mg PO DAILY Discharge Orders: Discharge Order (Routine); Ordered 01/17/25 Ordered By: Arden Carroll Referrals: Cory Robin MD [Primary Care Provider, Family Practice] Arden Carroll MD [Physician, General Surgery] Referral Note: 2 weeks Discharge Diet: Advance as tolerated Discharge Activity: Limit activity as instructed Patient Instructions: Acute Wound Care (DC), Opioid Safety, Post Anesthesia Care Activity Restrictions/Additional Instructions: General Instructions: Please do not lift anything heavier than 10 pounds, for the next 4 to 6 weeks. You can walk is much as possible, this will help you recover faster. You can shower starting the day after tomorrow, let soap and water run over your wound and then pat dry. Please take your medication as indicated if you are taking opioids please do not forget to take a stool softener Warning signs: Return to the hospital if you have fever, chills, severe abdominal pain that is getting worse over time despite your pain medication or if your eyes or skin are turning yellow Discharge Attestations Time Spent in Discharge Care*: less than 30 min Quality Metrics Clinical Quality Measures [ No reported AMI, CVA or VTE this stay] Coding Level of Care Code Acute Code for [facility] Fwd Diagnoses Cholecystitis K81.9
[2025-01-17] MEDS: lisinopril 20 mg Tablet PO (08:45)
[2025-01-17] MEDS: amlodipine 10 mg Tablet PO (08:45)
[2025-01-17 10:11] VITALS: BP 152/87; PULSE 65; RESP 16; TEMP 36.6; O2SAT 95
--- NOTE | 2025-01-17 10:19 | PC.NURSE ---
Discussed discharge with patient. Went over new medications and continued medications with patient. Discussed restricted activities and showers with patient. Medications sent to [facility] for patient. Patient verbalized understanding.
== END 2025-01-17 10:35 | disposition home or self-care (01) ==
LOC: ER 01-15 01:15 → ER IP 01-15 01:58 → MEDSURG 01-15 02:02
PROVIDERS: Admitting Provider Surgery; Emergency Provider Physician Assistant; PCP Family Medicine; Visit Provider Surgery
PROC: 0FT44ZZ Resection of Gallbladder, Percutaneous Endoscopic Approach (ICD-10-PCS; CPT 47562; principal; 2025-01-15 10:10)
DX: K80.10 Calculus of gallbladder with chronic cholecystitis without obstruction (principal); N17.9 Acute kidney failure, unspecified; I10 Essential (primary) hypertension; F17.200 Nicotine dependence, unspecified, uncomplicated
CPT/HCPCS: 47562; 36415; 71045; 71275; 74174; 76705; 80053; 83690; 83735; 84484; 85025; 88304; 93005; 96365; 96367; 96375; 99285; A4216; G0378; J0131; J0330; J0696; J1100; J1171; J1885; J2250; J2270; J2405; J2470; J2543; J2704; J3010; J3490; J7030; J7120; J9999

== ENCOUNTER 2025-05-05 08:55 | Outpatient (CLI) | payer OTHER, SELFPAY ==
--- NOTE | 2025-05-05 09:05 | XRR_ITS ---
PROCEDURE INFORMATION: Exam: XR Right Shoulder Exam date and time: 05/05/2025 9:11 AM Age: 54 years old Clinical indication: Pain; Shoulder; Right; Additional info: R shoulder joint pain TECHNIQUE: Imaging protocol: Radiologic exam of the right shoulder. Views: 2 or more views. COMPARISON: CR XR chest 1V portable [id number] 01/14/2025 11:57 PM FINDINGS: Bones/joints: Negative for acute bony abnormality. Soft tissues: Normal. XR/XR shoulder RT min 2V* [id number] IMPRESSION: No acute findings.
== END 2025-05-05 08:56 | disposition home or self-care (01) ==
PROVIDERS: PCP Family Medicine; Visit Provider Family Medicine
DX: M25.511 Pain in right shoulder (principal)
CPT/HCPCS: 73030